=== PATIENT | male | born 1960 | race Caucasian/White ===

== ENCOUNTER 2022-01-16 17:43 | Emergency (ER) | payer SELFPAY ==
--- NOTE | ~2022-01-16 | XR_ITS ---
XR elbow LT min 3V DATE: 01/16/2022 18:17 INDICATION: Fall. Posterior elbow laceration, pain TECHNIQUE: 4 views COMPARISON: None FINDINGS: No radiopaque soft tissue foreign body or subcutaneous emphysema. No recent fracture or dislocation. No joint effusion. No periosteal reaction or bone destruction. IMPRESSION: No fracture or dislocation or joint effusion Reviewed, dictated and finalized at location B. RANCE MANAGER
[2022-01-16 17:45] VITALS: BP 180/119; PULSE 76; RESP 16; TEMP 36.7; O2SAT 100
--- NOTE | 2022-01-16 17:45 | ED.UPPEXIN ---
HPI - Extremity Injury (Upper) General Chief Complaint: Extremity Injury, Upper Stated Complaint: left arm injury Time Seen by Provider: 01/16/22 17:45 Source: patient and RN notes reviewed Mode of arrival: ambulatory Limitations: no limitations Discharge Plan Discharge Follow-up/Referrals: Maggi Barbosa [Primary Care Provider] -
--- NOTE | 2022-01-16 17:52 | ED.FALL ---
HPI - Fall General Chief Complaint: Fall Stated Complaint: left arm injury Time Seen by Provider: 01/16/22 17:45 Source: patient and RN notes reviewed Mode of arrival: ambulatory Limitations: no limitations History of Present Illness HPI Narrative: patient states he was in the garage moving some chairs when he tripped over some other items fell onto his left side the elbow. He said he twisted his torso when he fell and he thinks he pulled some muscles in his ribs. He declined x-ray of his ribs at this time. complaint: fall Onset (ago): minute(s) (45) Fall from: standing Fall witnessed: yes, by family Place fall occurred: home Loss of consciousness: none Symptoms prior to fall: none Context: tripped/slipped Location of injury: chest (left ribs) Location of injury - extremities: Left: elbow Severity: moderate Quality: dull and aching Associated symptoms (after fall): denies Related Data Home Medications Medication Instructions Recorded Confirmed lisinopril 20 mg tablet 20 mg PO DAILY 01/16/22 01/16/22 Allergies Allergy/AdvReac Type Severity Reaction Status Date / Time No Known Allergies Allergy Verified 01/16/22 18:00 Review of Systems Review of Systems: All systems reviewed & are unremarkable except as noted in HPI and below PMFSH Past Medical History Medical History (Updated 01/16/22 @ 18:55 by Octavio Bardales MD) Hypertension Surgical History Surgical History (Updated 01/16/22 @ 17:58 by Octavio Bardales MD) H/O laminectomy L5-S1 Social History Social History (Updated 01/16/22 @ 17:58 by Octavio Bardales MD) Smoking status: Current every day smoker Tobacco type: e-cigarettes/vaping Additional smoking assessment comments: former smoker cigarettes currently vapes nicotine Exam Const: General: healthy appearing, no acute distress and alert Nutritional Appearance: well nourished Orientation/consciousness: patient oriented x3 Limitations: no limitations HENMT: Head: normal to inspection Ears: external ears normal Eyes: Conjunctivae: conjunctivae normal Pupils: Equal, round and reactive pupils present EOM: EOMs intact bilaterally Neck: Neck: normal visual inspection Chest: Chest palpation & inspection: tenderness rib left mid-axillary line involving the 6th rib and involving the 7th rib Resp: Effort & Inspection: normal respiratory effort Auscultation: clear to auscultation bilaterally Cardio: Rate: regular rate Rhythm: regular rhythm GI: GI Palp: Yes Soft to palpation and No Tenderness to palpation present (GI) Auscultation: normal bowel sounds Back/Spine/Pelvis: Cervical Spine: cervical ROM normal Thoracic/Lumbar Spine: thoraco-lumbar ROM normal Skin: General skin exam: normal color Rashes: no rashes Neuro: General: patient oriented x3, moves all extremities, no focal motor deficits and CN's II-XI intact bilaterally Speech: normal speech Gait exam (Neuro): Normal gait present Extrem: General: no clubbing, cyanosis or edema Left upper extremity: elbow/forearm tenderness of the olecranon, swelling of the olecranon and abrasion elbow posterior single Psych: Mental Status: mental status grossly normal Affect: normal affect Attitude: cooperative Course Vital Signs Vital signs: Vital Signs Temperature 36.7 C 01/16/22 17:45 Pulse Rate 76 01/16/22 17:45 Respiratory Rate 16 01/16/22 17:45 Blood Pressure 180/119 H 01/16/22 17:45 Pulse Oximetry 100 01/16/22 17:45 Oxygen Delivery Room Air 01/16/22 17:45 Temperature 36.7 C 01/16/22 17:45 Pulse Rate 75 01/16/22 19:13 Respiratory Rate 16 01/16/22 19:13 Blood Pressure 165/104 H 01/16/22 19:13 Pulse Oximetry 98 01/16/22 19:13 Oxygen Delivery Room Air 01/16/22 19:13 MDM - Fall Imaging Data Radiologist's impression: no fracture of the left elbow Discharge Plan Discharge Clinical Impression: Contusion of elbow, left Qualifiers: Encounter type: initial encounter
--- NOTE | 2022-01-16 18:25 | PC.NURSE ---
SPOKE WITH [facility] WHO REPORTS PT HAS NOT FILLED HIS MEDICATIONS SINCE 07/03/2020, HAD ABT ORDERED IN 10/01 AND NEVER PICKED THOSE UP EITHER. SPOKE WITH PT WHO REPORTS HE STILL HAS SOME OF HIS HTN MEDICATION AT HOME AND TAKES THEM WHEN HE GETS EXICITED.
[2022-01-16 19:13] VITALS: BP 165/104; PULSE 75; RESP 16; O2SAT 98
== END 2022-01-16 19:15 | disposition home or self-care (01) ==
PROVIDERS: Emergency Provider Emergency Medicine
DX: S50.02XA Contusion of left elbow, initial encounter (principal); W19.XXXA Unspecified fall, initial encounter
CPT/HCPCS: 73080; 99283

== ENCOUNTER 2023-08-18 11:23 | Inpatient (IN) | payer MEDICAID, SELFPAY ==
[2023-08-18] VITALS (31 sets, daily range): BP systolic 138–164; BP diastolic 82–105; PULSE 79–104; RESP 7–25; TEMP 36.7–36.8; O2SAT 96–100; BMI 25.0
--- NOTE | ~2023-08-18 | US_ITS ---
Limited ABDOMINAL ULTRASOUND Ordering provider: Anneliese Hung MD History: . pancreatitis . Comparison: None. FINDINGS: LIVER: Normal size. Heterogenous echotexture with fat infiltration. Lobulated outline which may indic ate cirrhosis. Follow-up advised.. No focal hepatic lesions or perihepatic fluid collections are iden tified. Normal flow of the portal vein. GALLBLADDER: Unremarkable. No evidence for stones, sludge, gallbladder wall thickening or pericholecy stic fluid collections. A negative sonographic Reeder's sign was noted. BILIARY DUCTS: No evidence for intra or extrahepatic biliary dilation. Common bile duct measures 2.34 mm in diameter which is within normal limits. PANCREAS: Not well demonstrated. IMPRESSION: Heterogenous echogenicity of the liver which is suggestive of fat infiltration. Lobulated outline als o areas of the possibility of cirrhosis. Clinical correlation and follow-up advised. The pancreas was not well demonstrated. Reviewed, dictated and finalized at location A. IMPRESSION: Heterogenous echogenicity of the liver which is suggestive of fat infiltration. Lobulated outline also areas of the possibility of cirrhosis. Clinical correla tion and follow-up advised. The pancreas was not well demonstrated.
--- NOTE | ~2023-08-18 | CT_ITS ---
CT of the Abdomen and Pelvis: Indication: Abdominal pain Technique: 2.5 mm axial scans were obtained through the abdomen and pelvis following intravenous adm inistration of 100 cc of Omnipaque 350. Dose reduction technique was used on this scan by utilizing a utomated exposure control and iterative reconstruction technique. The dose-length product (DLP) was 7 09.09 mGy-cm. Findings: Scans through the lung bases are unremarkable. The liver, spleen, pancreas, gallbladder, adrenals and kidneys are within normal limits. No evidence of aortic aneurysm. Shotty central mesenteric lymph nodes are present, with minimal haziness. No bowel obstruction or bowel wall thickening. Questionable diarrheal illness with fluid within large bowel. Images through the pelvis were performed. Urinary bladder unremarkable. No pelvic mass seen. No ascit es. Impression: Findings suggestive diarrheal illness, otherwise nonspecific. Suspected mild mesenteric panniculitis. Reviewed, dictated and finalized at [facility]. Impression: Findings suggestive diarrheal illness, otherwise nonspecific. Suspected mild mesenteric panniculitis.
--- NOTE | 2023-08-18 12:43 | ED.NAVMDI ---
HPI - Nausea/Vomiting/Diarrhea General Chief complaint: Nausea/Vomiting/Diarrhea <Caitlin Sanchez PA-C - Last Filed: 08/18/23 12:46> Stated complaint: nausea vomitting <JESS Dukes Last Filed: 08/18/23 12:46> Time Seen by Provider: 08/18/23 12:40 <Caitlin Sanchez PA-C - Last Filed: 08/18/23 12:46> Focused HPI: Patient is a 62 y/o male who presents to the ED via EMS with report of N/V/D. Patient reports he has been sick for the past 3-4 days with persistent nausea, vomiting, diarrhea. He states he is unable to keep down any food or drink. Reports whatever he attempts comes out one way or the other. Reports diffuse abd pain. Denies fevers. Denies rectal bleeding, melena. GENERAL: Appears older than stated age, well-nourished, and in no acute distress. HEAD: Normocephalic, atraumatic. CHEST: Clear to auscultation. ?No respiratory distress. HEART: Regular rate and rhythm.? ABD: No significant tenderness. MSK: Ankle monitor on R ankle. NEURO: ?Alert and oriented x3. Patient screened in triage and initial orders placed.? ?Additional care and disposition to be based upon?diagnostic testing and treatment. <Caitlin Sanchez PA-C - Last Filed: 08/18/23 12:46> Source: patient <Caitlin Sanchez PA-C - Last Filed: 08/18/23 12:46> Mode of arrival: EMS <Caitlin Sanchez PA-C - Last Filed: 08/18/23 12:46> Limitations: no limitations <JESS Dukes Last Filed: 08/18/23 12:46> History of Present Illness HPI Narrative: Agree with HPI. <Shine Snell MD - Last Filed: 08/18/23 18:43> Related Data Home medications: Home Medications Medication Instructions Recorded Confirmed lisinopril 20 mg tablet 20 mg PO DAILY 01/16/22 01/16/22 <JESS Dukes Last Filed: 08/18/23 12:46> Allergies/Adverse reactions: Allergies Allergy/AdvReac Type Severity Reaction Status Date / Time No Known Allergies Allergy Verified 08/18/23 18:42 <Caitlin Sanchez PA-C - Last Filed: 08/18/23 12:46> Review of Systems Review of Systems: All systems reviewed & are unremarkable except as noted in HPI and below <Shine Snell MD - Last Filed: 08/18/23 18:43> Constitutional: Constitutional: Reports no additional constitutional complaints <Shine Snell MD - Last Filed: 08/18/23 18:43> ENT: Reports system reviewed and no additional complaints, except as documented <Shine Snell MD - Last Filed: 08/18/23 18:43> Cardiovascular: Cardiovascular: Reports no additional cardiovascular complaints <Shine Snell MD - Last Filed: 08/18/23 18:43> Respiratory: Respiratory: Reports no additional respiratory complaints <Shine Snell MD - Last Filed: 08/18/23 18:43> Gastrointestinal: Gastrointestinal: Reports abdominal pain, Denies heartburn, Reports diarrhea, Reports nausea and Reports vomiting <Shine Snell MD - Last Filed: 08/18/23 18:43> Neurologic: Reports system reviewed and no additional complaints, except as documented <Shine Snell MD - Last Filed: 08/18/23 18:43> PMFSH Past Medical History Medical History: Medical History (Updated 08/18/23 @ 18:43 by Shine Snell MD) Hypertension <Caitlin Sanchez PA-C - Last Filed: 08/18/23 12:46> Surgical History Surgical History: Surgical History (Updated 01/16/22 @ 17:58 by Octavio BardalesMD) H/O laminectomy L5-S1 <Caitlin Sanchez PA-C - Last Filed: 08/18/23 12:46> Social History Social History: Social History (Updated 01/16/22 @ 17:58 by Octavio BardalesMD) Smoking status: Current every day smoker Tobacco type: e-cigarettes/vaping Additional smoking assessment comments: former smoker cigarettes currently vapes nicotine <Caitlin Sanchez PA-C - Last Filed: 08/18/23 12:46> Exam Narrative: GENERAL: Well-appearing, well-nourished, and in no acute distress. HEAD: Normo
[2023-08-18 12:53] LABS: Basophils Percent Auto 0.3 % (0.2-1.2); Eosinophils Absolute Auto 0.1 K/mm3 (0-0.3); Eosinophils Percent Auto 1.2 % (0-4.4); Hematocrit 49.3 % (42.0-52.0); Hemoglobin 16.4 g/dL (14.0-18.0); Immature Granulocyte Absolute 0.04 K/mm3 (0.00-0.031); Immature Granulocyte Percent A 0.3 % (0-0.5); Lymphocytes Absolute Auto 1.17 K/mm3 (0.9-3.2); Lymphocytes Percent Auto 9.8 % (18.3-44.2); Mean Corpuscular HGB Conc 33.3 g/dl (32-36); Mean Corpuscular Hemoglobin 31.7 pg (26-34); Mean Corpuscular Volume 95.2 fl (80-100); Mean Platelet Volume 10.3 fl (7.4-10.4); Monocytes Absolute Auto 0.7 K/mm3 (0.1-0.6); Monocytes Percent Auto 6.2 % (2.6-8.5); Neutrophils Absolute Auto 9.8 K/mm3 (1.3-6.7); Neutrophils Percent Auto 82.2 % (45.5-73.1); Platelet Count Result 262 k/mm3 (150-375); Red Blood Count 5.18 M/mm3 (4.6-6.20); Red Cell Distribution Width 12.5 % (11.5-14.5); White Blood Count 11.9 K/mm3 (4.5-10.0)
[2023-08-18 13:12] LABS: Lactic Acid Reflex 2.1 mmol/L (0.7-2.0)
[2023-08-18 13:13] LABS: Alanine Aminotransferase 27 U/L (6-50); Albumin Level 4.7 g/dL (3.5-5.1); Alkaline Phosphatase 80 U/L (38-126); Anion Gap 11 mmol/L (4-12); Aspartate Amino Transferase 28 U/L (17-59); Bilirubin,Total 1.1 mg/dL (0.2-1.3); Blood Urea Nitrogen 26 mg/dL (9-20); Calcium 9.4 mg/dL (8.4-10.2); Carbon Dioxide 25 mmol/L (22-30); Chloride 99 mmol/L (98-107); Estimated CRCL calculation 93 ml/min; Estimated Glomerular Filt Rate > 60; Glucose 105 mg/dL (65-110); Lipase 1533 U/L (23-300); Potassium 4.9 mmol/L (3.4-5.0); Sodium 135 mmol/L (137-145)
[2023-08-18] MEDS: SODIUM CHLORIDE 0.9% IV 1,000 ML 999 ML IV CONT (13:21)
[2023-08-18] MEDS: ONDANSETRON INJ 4 MG/2 ML VIAL IV PUSH ×2 (13:22→20:24)
[2023-08-18 14:19] LABS: Appearance Urine Clear (Clear); Bilirubin Urine Negative (Negative); Blood Urine Negative (Negative); Color Urine Yellow (Yellow); Glucose Urine UA Negative (Negative); Ketones Urine Negative (Negative); Leukocyte Esterase Ur Negative LEU/UL (Negative); Nitrate Urine Negative (Negative); Protein Urine Negative (Negative); Specific Grav Ur > 1.045 (1.001-1.035); Urobilinogen Urine 0.2 mg/dL (<2.0); pH Urine 5.5 (5.0-9.0)
[2023-08-18 14:43] LABS: Add Urine Microscopic? NO
[2023-08-18 15:51] LABS: Reflex Lactic Acid Yes or No Add Lactic
[2023-08-18 17:05] LABS: Lactic Acid 1.3 mmol/L (0.7-2.0)
[2023-08-18] MEDS: SODIUM CHLORIDE 0.9% IV 1,000 ML 200 ML IV CONT ×2 (18:39→20:24)
--- NOTE | 2023-08-18 18:47 | ADMGEN ---
This patient, Jatin Ralph, was admitted to 3 [facility] Surg Room 314-02. Report received from ANGELA Farooq. Patient/family oriented to hospital policies and general routines including ID bracelet, bed and alarms, visiting hours, pain management, procedures, bathroom and other care routines, personal items, smoking policy, room service/diet, and visiting hours. Information on how to activate the Rapid Response Team has been discussed. Patient/Family are encouraged to report perceived risks to care and to ask questions if they do not understand what they are told or what they should do.
[2023-08-18] MEDS: MORPHINE SULFATE (*CRX) 4 MG/ML INJ IV PUSH (20:24)
--- NOTE | 2023-08-18 23:43 | PM.IMHP ---
H&P: HPI History of Present Illness Date/Time: 08/18/23 23:43 Chief Complaint: Vomiting and diarrhea Narrative: 62 year old meth user admitting with nausea, vomiting and diarrhea other medical history of HTN lipase is 1533, sodium is 135, wcc is 11.9 CT scan shows - Findings suggestive diarrheal illness, otherwise nonspecific. Suspected mild mesenteric panniculitis. Pt admitted for pancreatitis to medical floor Pt denies alcholol or smoking but uses meth every other day Pt feels very anxious presently in the bed Review of Systems Review of Systems: Anxiety , diarrhea, vomiting, mild abdominal pains All other 12 systems are reviewed and negative apart from pertinent complaints above PMFSH Past Medical History Medical History (Updated 08/18/23 @ 23:51 by Anneliese Hung MD) Hypertension Surgical History Surgical History H/O laminectomy L5-S1 Social History Social History Smoking status: Current every day smoker Tobacco type: cigarettes Additional smoking assessment comments: former smoker cigarettes currently vapes nicotine Alcohol intake: never Substance use: current Substance use type: amphetamines Last use: 08/16/23 Do You Feel Safe in your Home?: Yes Lack of Transportation: YES Lack of Food: Often True Current Housing: I Do Not Have Housing Concerned About Future Housing: YES Difficulty Paying Gas/Electric Bills: No Difficulty Paying for Meds: YES Currently Unemployed: YES Education: Associate Degree Difficulty w/ Childcare or Family Care: No Spiritual care concerns: No Meds Home Medications and Allergies Home Medications Medication Instructions Recorded Confirmed Type lisinopril 20 mg tablet 20 mg PO DAILY 01/16/22 08/18/23 History Allergies Allergy/AdvReac Type Severity Reaction Status Date / Time No Known Allergies Allergy Verified 08/18/23 18:42 Vital Signs Vital Signs - 24 hr 08/18/23 11:26 08/18/23 13:42 08/18/23 13:09 Temperature 36.7 C Pulse Rate 94 83 88 Respiratory Rate 16 16 12 Blood Pressure 138/90 156/95 H Pulse Oximetry 98 99 Oxygen Delivery Room Air 08/18/23 13:15 08/18/23 13:37 08/18/23 13:38 Temperature Pulse Rate 89 87 89 Respiratory Rate 11 L 14 Blood Pressure 156/95 H Pulse Oximetry 99 99 98 Oxygen Delivery 08/18/23 13:45 08/18/23 13:46 08/18/23 14:00 Temperature Pulse Rate 82 80 86 Respiratory Rate 16 17 13 Blood Pressure 142/90 H Pulse Oximetry 97 97 98 Oxygen Delivery 08/18/23 14:01 08/18/23 14:15 08/18/23 14:16 Temperature Pulse Rate 97 94 85 Respiratory Rate 25 H 17 19 Blood Pressure 143/90 H 146/102 H Pulse Oximetry 96 99 98 Oxygen Delivery 08/18/23 14:30 08/18/23 14:31 08/18/23 14:45 Temperature Pulse Rate 85 86 91 Respiratory Rate 20 19 24 H Blood Pressure 164/83 H Pulse Oximetry 97 98 Oxygen Delivery 08/18/23 14:46 08/18/23 15:00 08/18/23 15:15 Temperature Pulse Rate 90 87 93 Respiratory Rate 22 H 16 17 Blood Pressure 159/105 H Pulse Oximetry 98 97 97 Oxygen Delivery 08/18/23 15:30 08/18/23 15:45 08/18/23 16:00 Temperature Pulse Rate 92 91 94 Respiratory Rate 19 19 17 Blood Pressure Pulse Oximetry 99 Oxygen Delivery 08/18/23 16:15 08/18/23 16:30 08/18/23 16:45 Temperature Pulse Rate 104 H 81 80 Respiratory Rate 7 L 11 L 14 Blood Pressure Pulse Oximetry Oxygen Delivery 08/18/23 17:00 08/18/23 17:15 08/18/23 17:30 Temperature Pulse Rate 79 79 100 Respiratory Rate 19 12 15 Blood Pressure Pulse Oximetry Oxygen Delivery 08/18/23 17:45 08/18/23 18:00 08/18/23 20:42 Temperature 36.8 C Pulse Rate 79 84 90 Respiratory Rate 9 L 14 18 Blood Pressure 145/82 H Pulse Oximetry 100 Oxygen Delivery 08/18/23 20:00 Temperat
[2023-08-19] MEDS: MORPHINE SULFATE (*CRX) 4 MG/ML INJ IV PUSH ×3 (00:41→21:04)
[2023-08-19 05:40] VITALS: BP 144/84; PULSE 80; RESP 18; TEMP 36.7; O2SAT 99
[2023-08-19 08:00] VITALS: O2SAT 99
[2023-08-19 08:53] LABS: Hematocrit 43.2 % (42.0-52.0); Hemoglobin 14.1 g/dL (14.0-18.0); Mean Corpuscular HGB Conc 32.6 g/dl (32-36); Mean Corpuscular Hemoglobin 31.8 pg (26-34); Mean Corpuscular Volume 97.3 fl (80-100); Mean Platelet Volume 10.3 fl (7.4-10.4); Platelet Count Result 212 k/mm3 (150-375); Red Blood Count 4.44 M/mm3 (4.6-6.20); Red Cell Distribution Width 12.6 % (11.5-14.5); White Blood Count 6.9 K/mm3 (4.5-10.0)
[2023-08-19 09:09] LABS: Alanine Aminotransferase 20 U/L (6-50); Albumin Level 3.7 g/dL (3.5-5.1); Alkaline Phosphatase 75 U/L (38-126); Anion Gap 7 mmol/L (4-12); Aspartate Amino Transferase 22 U/L (17-59); Bilirubin,Total 0.6 mg/dL (0.2-1.3); Blood Urea Nitrogen 18 mg/dL (9-20); Calcium 8.8 mg/dL (8.4-10.2); Carbon Dioxide 27 mmol/L (22-30); Chloride 104 mmol/L (98-107); Estimated CRCL calculation 69 ml/min; Estimated Glomerular Filt Rate > 60; Glucose 93 mg/dL (65-110); Lipase 153 U/L (23-300); Potassium 4.1 mmol/L (3.4-5.0); Sodium 138 mmol/L (137-145)
[2023-08-19] MEDS: PANTOPRAZOLE SODIUM IV 40 MG VIAL IV PUSH ×2 (09:27→21:04)
[2023-08-19] MEDS: lisinopriL 20 MG TABLET PO (09:27)
[2023-08-19] MEDS: ALPRAZolam (*CRX) 0.25 MG TABLET PO ×3 (09:27→18:30)
[2023-08-19] MEDS: ENOXAPARIN 40 MG/0.4 ML SYRINGE SUB-Q (09:27)
[2023-08-19 13:00] VITALS: BMI 25.0
--- NOTE | 2023-08-19 13:08 | WPDGICN ---
Assessment and Plan Assessment and plan (1) Acute diarrhea: Code(s): R19.7 - Diarrhea, unspecified Status: Acute (2) Nausea and vomiting: Code(s): R11.2 - Nausea with vomiting, unspecified Status: Acute (3) Mesenteric panniculitis: Code(s): K65.4 - Sclerosing mesenteritis Status: Acute (4) Elevated lipase: Code(s): R74.8 - Abnormal levels of other serum enzymes Status: Acute (5) Cirrhosis: Code(s): K74.60 - Unspecified cirrhosis of liver Status: Acute (6) Methamphetamine use: Code(s): F15.10 - Other stimulant abuse, uncomplicated Status: Acute (7) Hypertension: Code(s): I10 - Essential (primary) hypertension Status: Acute (8) Acute pancreatitis: Code(s): K85.90 - Acute pancreatitis without necrosis or infection, unspecified Status: Acute Plan Nausea, Vomiting and Diarrhea/Mid Abdominal Pain/Mesenteric panniculitis: Viral vs. Infectious, CT noted liquid stool throughout the colon consistent with diarrhea illness and suspected mild mesenteric panniculitis which could be consistent with viral or bacterial infection or etiology ischemic. WBC elevated 11. He has had no further diarrhea or vomiting since being hospitalized but has been NPO. -Recommend checking for c diff, stool culture and stool O&P along with viral -Continue IV hydration and supportive Tx -Recommend close f/u to make sure mesenteric panniculitis has resolved with imaging in 6-8 weeks by PCP -Colonoscopy recommended outpatient. -Abstain from methamphetamine use Elevated Lipase/Acute pancreatitis: Lipase elevated on admission of 1533 and Lipase is now normal. CT showed normal appearing pancreas and abd US showed no evidence of gallstones. Lipase could be elevated due to acute vomiting? His abdominal pain is not consistent with pancreatitis. -He received adequate hydration -Supportive Tx recommended -Advance diet as tolerated -recommend him seeing from methamphetamine Abnormal Liver Contour/Hepatic Steatosis/Cirrhosis?: US showed normal liver size with fat infiltration with lobulated outline that may indicate cirrhosis. He denies any hx of ETOH abuse or family hx of chronic liver diseases. LFT normal and platelets normal. No signs of decompensation of liver disease. Could be secondary to chronic drug use, meth? -Recommend liver work up labs to rule out other chronic liver diseases -f/u outpatient for Cirrhosis f/u -Recommend to abstain from methamphetamine GI Consult Note Consult date/time: 08/19/23 1756 Reason for consult: Pancreatitis HPI: Jatin Ralph is a 62 year old male asked to be seen at the request of the hospitalist for pancreatitis. Past medical history of hypertension, chronic methamphetamine abuse, and laminectomy. He presented to the ER yesterday 08/18/2023 for 5 days of nausea, vomiting and diarrhea with increasing weakness. He also states that he had been having constant mid abdominal pain pain that he describes as ?getting kicked in the stomach?. He believes that eating made the abdominal pain somewhat better but immediately if he would eat he would either vomit or have postprandial diarrhea. He denies any black or bloody stools. He denied any recent antibiotic usage, travel or sick contacts. He had a similar episode around 6-8 days prior that lasted 2 days and self resolved. He complains of having hot flashes but never took his temperature. Colonoscopy greater than 10 years ago with no abnormalities. Never has had an EGD. His mother of complications after colonoscopy. No family history of inflammatory bowel disease, GI malignancies. He denies any heavy chronic alcohol abuse, reports 2-3 beers per week. Denies any new recent medications. He has been taking Advil 2-3 tabs daily for chronic pain and taking 5 children's aspirin due to ?chest pain? and ?high blood pressure?. He does not follow with PCP. He uses methamphetamine every
[2023-08-19] MEDS: SODIUM CHLORIDE 0.9% IV 1,000 ML 200 ML IV CONT ×2 (13:37→18:30)
--- NOTE | 2023-08-19 13:37 | P.PNIM_ITS ---
Progress Note: A&P Assessment and Plan (1) Acute pancreatitis: Code(s): K85.90 - Acute pancreatitis without necrosis or infection, unspecified Status: Acute (2) Methamphetamine use: Code(s): F15.10 - Other stimulant abuse, uncomplicated Status: Acute (3) Hypertension: Code(s): I10 - Essential (primary) hypertension Status: Acute Plan Acute pancreatitis * elevated lipase POA trend * CT Suspected mild mesenteric panniculitis. * GI consulted * IV fluids * pain control * Advanced to clear liquid advance as tolerated * PPI * Methamphetamine cessation recommended Nausea, Vomiting and Diarrhea/Mid Abdominal Pain/Mesenteric panniculitis: * GI consulted * stool studies pending * Recommend close f/u to make sure mesenteric panniculitis has resolved with imaging in 6-8 weeks by PCP * Colonoscopy recommended outpatient. * Abstain from methamphetamine use Hepatic Steatosis/Cirrhosis? * KUB with possible cirrhosis * GI following * will need F/U O/P * hepatitis panel pending HX HTN: Resumed lisinopril Code status: Full code per patient DVT prophylaxis: Lovenox Stress ulcer prophylaxis: Protonix 40 daily PT/OT notes: Ambulatory Disposition: Patient was admitted for acute pancreatitis with nausea diarrhea patient being treated with aggressive IV hydration pain control will advance diet as tolerated GI consulted. Of note patient does have ankle monitor to RT ankle CC assisting with discharge planning and resources. Time Spent With Patient Time with patient: 15 - 25 minutes Subjective Date/time seen: 08/19/23 13:37 Interval history: Admission: Medical Record 62 year old meth user admitting with nausea, vomiting and diarrhea other medical history of HTN lipase is 1533, sodium is 135, wcc is 11.9 CT scan shows - Findings suggestive diarrheal illness, otherwise nonspecific. Suspected mild mesenteric panniculitis. 08/19/2023: Patient admitted with acute pancreatitis, lipase trending down and GI consulted. Patient reported pain has improved transitioned to clear liquid and will advance as tolerated. WBC 11.9 POA normal at 6.9, GI ordered stool labs and hepatitis panel recommend outpatient colonoscopy cirrhosis follow-up. Review of Systems Review of Systems: Anxiety , diarrhea, vomiting, mild abdominal pains All other 12 systems are reviewed and negative apart from pertinent complaints above All systems reviewed & are unremarkable except as noted in HPI and below Exam Narrative: Physical Exam: * GENERAL: Alert and oriented x 3. No acute distress. * EYES: EOMI. No scleral icterus. PERRLA. * HEENT: Moist mucous membranes. * LUNGS: Clear to auscultation bilaterally. No accessory muscle use. * CARDIOVASCULAR: Regular rate and rhythm. No murmur. No JVD. S1-S2 * ABDOMEN: Soft, mild tenderness and non-distended. No palpable masses. * EXTREMITIES: No edema. Non-tender (Of note patient does have an ankle monitor on RT ankle. * SKIN: No rashes or lesions. Skin warm, dry. * NEUROLOGIC: No focal neurological deficits. CN II-XII grossly intact * PSYCHIATRIC: Appropriate mood and affect. Good judgement and insight. No visual or auditory hallucinations. No suicidal or homicidal ideation. Objective Data Vital Signs Vital Signs: Vital Signs - 24 hr 08/18/23 13:42 08/18/23
--- NOTE | 2023-08-19 13:37 | PM.IMPN ---
Progress Note: A&P Assessment and Plan (1) Acute pancreatitis: Code(s): K85.90 - Acute pancreatitis without necrosis or infection, unspecified Status: Acute (2) Methamphetamine use: Code(s): F15.10 - Other stimulant abuse, uncomplicated Status: Acute (3) Hypertension: Code(s): I10 - Essential (primary) hypertension Status: Acute Plan Acute pancreatitis elevated lipase POA trend CT Suspected mild mesenteric panniculitis. GI consulted IV fluids pain control Advanced to clear liquid advance as tolerated PPI Methamphetamine cessation recommended Nausea, Vomiting and Diarrhea/Mid Abdominal Pain/Mesenteric panniculitis: GI consulted stool studies pending Recommend close f/u to make sure mesenteric panniculitis has resolved with imaging in 6-8 weeks by PCP Colonoscopy recommended outpatient. Abstain from methamphetamine use Hepatic Steatosis/Cirrhosis? KUB with possible cirrhosis GI following will need F/U O/P hepatitis panel pending HX HTN: Resumed lisinopril Code status: Full code per patient DVT prophylaxis: Lovenox Stress ulcer prophylaxis: Protonix 40 daily PT/OT notes: Ambulatory Disposition: Patient was admitted for acute pancreatitis with nausea diarrhea patient being treated with aggressive IV hydration pain control will advance diet as tolerated GI consulted. Of note patient does have ankle monitor to RT ankle CC assisting with discharge planning and resources. Time Spent With Patient Time with patient: 15 - 25 minutes Subjective Date/time seen: 08/19/23 13:37 Interval history: Admission: Medical Record 62 year old meth user admitting with nausea, vomiting and diarrhea other medical history of HTN lipase is 1533, sodium is 135, wcc is 11.9 CT scan shows - Findings suggestive diarrheal illness, otherwise nonspecific. Suspected mild mesenteric panniculitis. 08/19/2023: Patient admitted with acute pancreatitis, lipase trending down and GI consulted. Patient reported pain has improved transitioned to clear liquid and will advance as tolerated. WBC 11.9 POA normal at 6.9, GI ordered stool labs and hepatitis panel recommend outpatient colonoscopy cirrhosis follow-up. Review of Systems Review of Systems: Anxiety , diarrhea, vomiting, mild abdominal pains All other 12 systems are reviewed and negative apart from pertinent complaints above All systems reviewed & are unremarkable except as noted in HPI and below Exam Narrative: Physical Exam: GENERAL: Alert and oriented x 3. No acute distress. EYES: EOMI. No scleral icterus. PERRLA. HEENT: Moist mucous membranes. LUNGS: Clear to auscultation bilaterally. No accessory muscle use. CARDIOVASCULAR: Regular rate and rhythm. No murmur. No JVD. S1-S2 ABDOMEN: Soft, mild tenderness and non-distended. No palpable masses. EXTREMITIES: No edema. Non-tender (Of note patient does have an ankle monitor on RT ankle. SKIN: No rashes or lesions. Skin warm, dry. NEUROLOGIC: No focal neurological deficits. CN II-XII grossly intact PSYCHIATRIC: Appropriate mood and affect. Good judgement and insight. No visual or auditory hallucinations. No suicidal or homicidal ideation. Objective Data Vital Signs Vital Signs: Vital Signs - 24 hr 08/18/23 13:42 08/18/23 13:38 08/18/23 13:45 Temperature Pulse Rate 83 89 82 Respiratory Rate 16 14 16 Blood Pressure 156/95 H 156/95 H Pulse Oximetry 99 98 97 Oxygen Delivery 08/18/23 13:46 08/18/23 14:00 08/18/23 14:01 Temperature Pulse Rate 80 86 97 Respiratory Rate 17 13 25 H Blood Pressure 142/90 H 143/90 H Pulse Oximetry 97 98 96 Oxygen Delivery 08/18/23 14:15 08/18/23 14:16 08/18/23 14:30 Temperature Pulse Rate 94 85 85 Respiratory Rate 17 19 20 Blood Pressure 146/102 H Pulse Oximetry 99 98 97 Oxygen Delivery 08/18/23 14:31 08/18/23 14:45 08/18/23 14:46 [place]
[2023-08-19 13:58] LABS: Iron 74 ug/dL (49-181)
[2023-08-19 14:00] VITALS: BP 110/32; PULSE 77; RESP 20; TEMP 36.7; O2SAT 98
[2023-08-19 14:07] LABS: Percent Iron Saturation 26 % (20-50)
[2023-08-19 14:17] LABS: Hepatitis B Surface Antigen Negative (Negative)
[2023-08-19 14:23] LABS: HAV RESULT Negative (Negative); Hepatitis B Core IgM Result Negative (Negative)
[2023-08-19 14:35] LABS: Hepatitis C Virus Antibody Negative (Negative)
[2023-08-19 15:11] LABS: Prothrombin Time 13.9 Seconds (11.1-14.7)
[2023-08-19 22:00] VITALS: BP 147/80; PULSE 83; RESP 18; TEMP 36.6; O2SAT 98
[2023-08-20] MEDS: LORazepam INJ (*CRX) 2 MG/ML VIAL 0.5 MG IV PUSH (00:58)
[2023-08-20] MEDS: SODIUM CHLORIDE 0.9% IV 1,000 ML 200 ML IV CONT ×3 (00:58→05:33)
[2023-08-20] MEDS: MORPHINE SULFATE (*CRX) 4 MG/ML INJ IV PUSH (02:58)
[2023-08-20 05:45] VITALS: BP 131/98; PULSE 74; RESP 18; TEMP 36.6; O2SAT 94
[2023-08-20 07:05] LABS: Alanine Aminotransferase 18 U/L (6-50); Albumin Level 3.2 g/dL (3.5-5.1); Alkaline Phosphatase 62 U/L (38-126); Anion Gap 7 mmol/L (4-12); Aspartate Amino Transferase 17 U/L (17-59); Bilirubin,Total 0.2 mg/dL (0.2-1.3); Blood Urea Nitrogen 15 mg/dL (9-20); Calcium 8.4 mg/dL (8.4-10.2); Carbon Dioxide 23 mmol/L (22-30); Chloride 108 mmol/L (98-107); Estimated CRCL calculation 83 ml/min; Estimated Glomerular Filt Rate > 60; Glucose 96 mg/dL (65-110); Lipase 96 U/L (23-300); Sodium 138 mmol/L (137-145)
[2023-08-20 07:16] LABS: Hematocrit 41.1 % (42.0-52.0); Hemoglobin 13.1 g/dL (14.0-18.0); Mean Corpuscular HGB Conc 31.9 g/dl (32-36); Mean Corpuscular Hemoglobin 31.3 pg (26-34); Mean Corpuscular Volume 98.1 fl (80-100); Mean Platelet Volume 10.9 fl (7.4-10.4); Platelet Count Result 214 k/mm3 (150-375); Red Blood Count 4.19 M/mm3 (4.6-6.20); Red Cell Distribution Width 12.5 % (11.5-14.5); White Blood Count 7.7 K/mm3 (4.5-10.0)
[2023-08-20 08:18] VITALS: O2SAT 98
[2023-08-20] MEDS: PANTOPRAZOLE SODIUM IV 40 MG VIAL IV PUSH (08:31)
[2023-08-20] MEDS: ALPRAZolam (*CRX) 0.25 MG TABLET PO (08:31)
[2023-08-20] MEDS: lisinopriL 20 MG TABLET PO (08:32)
[2023-08-20] MEDS: ENOXAPARIN 40 MG/0.4 ML SYRINGE SUB-Q (08:32)
--- NOTE | 2023-08-20 10:11 | PM.IMPN ---
Progress Note: A&P Assessment and Plan (1) Acute pancreatitis: Code(s): K85.90 - Acute pancreatitis without necrosis or infection, unspecified Status: Acute (2) Methamphetamine use: Code(s): F15.10 - Other stimulant abuse, uncomplicated Status: Acute (3) Hypertension: Code(s): I10 - Essential (primary) hypertension Status: Acute Plan Acute pancreatitis elevated lipase POA trend CT Suspected mild mesenteric panniculitis. GI consulted IV fluids pain control Advanced to clear liquid advance as tolerated PPI Methamphetamine cessation recommended Nausea, Vomiting and Diarrhea/Mid Abdominal Pain/Mesenteric panniculitis: GI consulted stool studies pending Recommend close f/u to make sure mesenteric panniculitis has resolved with imaging in 6-8 weeks by PCP Colonoscopy recommended outpatient. Abstain from methamphetamine use Hepatic Steatosis/Cirrhosis? KUB with possible cirrhosis GI following will need F/U O/P hepatitis panel pending HX HTN: Resumed lisinopril Code status: Full code per patient DVT prophylaxis: Lovenox Stress ulcer prophylaxis: Protonix 40 daily PT/OT notes: Ambulatory Disposition: Patient was admitted for acute pancreatitis with nausea diarrhea patient being treated with aggressive IV hydration pain control will advance diet as tolerated GI consulted. Of note patient does have ankle monitor to RT ankle CC assisting with discharge planning and resources. Subjective Date/time seen: 08/20/23 10:11 Interval history: 62 year old with PMH of htn and methamphetamine abuse presents with nausea, vomiting and diarrhea. 08/19: Review of Systems Review of Systems: All systems reviewed & are unremarkable except as noted in HPI and below Exam Narrative: General: well appearing, appears stated age. HEENT: normocephalic, atraumatic. Mucous membranes moist. EOMI, PERRLA, bilateral sclera anicteric, no conjunctival injection. Neck supple without JVD, lymphadenopathy, or bruit. Respiratory: clear to ascultation bilaterally. No rales/rhonic/wheezes. Cardiovascular: Regular rate and rhythm, normal S1-S2 upon ascultation. No murmurs, rubs, or clicks. PMI is nondisplaced, capillary refill less than 3 second. Abdomen: Soft, round, no pulsatile masses, nondistended and nontender. No rebound, no guarding. No CVA tenderness, no hepatosplenomegaly. Bowel sounds present to all four quadrants. No high pitch or tinkling sounds, resonant to percussion. Extremities: No cyanosis, clubbing, or edema present. Pulses are palpable 2/2. Active ROM to all four extremities. Neuro: Alert and orientated x 4. PERRLA. Cranial nerves 2-12 intact without focal deficit. Skin: Warm, dry, and intact, without rash, erythema, or lesion. Lines: Incisions: Psych: pleasant, cooperative, normal speech, normal affect, no hallucinations, no dysarthia Objective Data Vital Signs Vital Signs: Vital Signs - 24 hr 08/19/23 14:00 08/19/23 22:00 08/20/23 05:45 Temperature 98.0 F 97.9 F 97.9 F Pulse Rate 77 83 74 Respiratory Rate 20 18 18 Blood Pressure 110/32 L 147/80 H 131/98 H Pulse Oximetry 98 98 94 Oxygen Delivery Fraction of Inspired Oxygen 08/20/23 08:18 08/20/23 08:00 Temperature Pulse Rate Respiratory Rate Blood Pressure Pulse Oximetry 98 Oxygen Delivery Room Air Room Air Fraction of Inspired Oxygen 21 21 Intake/Output Intake/Output: Intake & Output 08/17/23 08/18/23 08/19/23 08/20/23 23:59 23:59 23:59 23:59 Intake Total 1350 2976.7 1036.6 Output Total 1150 2600 Balance 1350 1826.7 -1563.4 Meds/Results Medications: Active Medications Generic Name Dose Route Start Last Admin Trade Name Freq PRN Reason Stop Dose Admin Alprazolam 0.25 mg 08/19/23 00:02 08/20/23 08:31 Alprazolam (*Crx) 0.25 Mg Tablet PO 0.25 mg TID PRN Administration AGITATION Clonidine HCl 1 patch
[2023-08-20 14:00] VITALS: BP 162/92; PULSE 74; RESP 18; TEMP 36; O2SAT 100
[2023-08-20 15:49] LABS: Ceruloplasmin 20 mg/dL (14-30)
--- NOTE | 2023-08-20 16:57 | WPDGIPROGNO ---
Progress Note: A&P Assessment and Plan (1) Nausea and vomiting: Code(s): R11.2 - Nausea with vomiting, unspecified Status: Acute Assessment and Plan: resolved, eating now he can go home (2) Acute diarrhea: Code(s): R19.7 - Diarrhea, unspecified Status: Acute (3) Methamphetamine use: Code(s): F15.10 - Other stimulant abuse, uncomplicated Status: Acute Assessment and Plan: needs to discontinue (4) Elevated lipase: Code(s): R74.8 - Abnormal levels of other serum enzymes Status: Acute Assessment and Plan: no obvious pancreatitis though (5) Abnormal liver scan: Code(s): R93.2 - Abnormal findings on diagnostic imaging of liver and biliary tract Status: Acute Assessment and Plan: fatty liver, ? cirrhosis but normal liver enzymes and platelets he can follow-up in office Subjective Date/time seen: 08/20/23 16:57 Interval history: doing better, no abdominal discomfort and eating he is going home Review of Systems Review of Systems: All systems reviewed & are unremarkable except as noted in HPI and below Exam Const: General: comfortable and no acute distress HENMT: Face/Nose/Sinus: Normal nares present Eyes: General: appearance normal, both eyes and all related structures Neck: Neck: no JVD Resp: Auscultation: clear to auscultation bilaterally Cardio: Rate: regular rate Rhythm: regular rhythm GI: Inspection: non-distended GI Palp: Yes Soft to palpation and No Tenderness to palpation present (GI) Auscultation: normal bowel sounds Skin: General skin exam: normal color Neuro: Speech: normal speech Motor exam (neuro): 5/5 motor strength present throughout Extrem: General: normal to inspection Psych: Mental Status: mental status grossly normal Objective Data Vital Signs Vital Signs: Vital Signs - 24 hr 08/19/23 22:00 08/20/23 05:45 08/20/23 08:18 Temperature 97.9 F 97.9 F Pulse Rate 83 74 Respiratory Rate 18 18 Blood Pressure 147/80 H 131/98 H Pulse Oximetry 98 94 98 Oxygen Delivery Room Air Fraction of Inspired Oxygen 21 08/20/23 08:00 08/20/23 14:00 Temperature 96.8 F L Pulse Rate 74 Respiratory Rate 18 Blood Pressure 162/92 H Pulse Oximetry 100 Oxygen Delivery Room Air Fraction of Inspired Oxygen 21 Intake/Output Intake/Output: Intake & Output 08/17/23 08/18/23 08/19/23 08/20/23 23:59 23:59 23:59 23:59 Intake Total 1350 2976.7 2036.6 Output Total 1150 3600 Balance 1350 1826.7 -1563.4 Meds/Results Medications: Active Medications Generic Name Dose Route Start Last Admin Trade Name Freq PRN Reason Stop Dose Admin Alprazolam 0.25 mg 08/19/23 00:02 08/20/23 08:31 Alprazolam (*Crx) 0.25 Mg Tablet PO 0.25 mg TID PRN Administration AGITATION Clonidine HCl 1 patch 08/19/23 00:02 Clonidine 0.1 Mg/24 Hr Patch TRANSDERM WEEKLY PRN Agitation Enoxaparin Sodium 40 mg 08/19/23 09:00 08/20/23 08:32 Enoxaparin 40 Mg/0.4 Ml Syringe SUB-Q 40 mg DAILY JOEL Administration Sodium Chloride 1,000 mls @ 200 mls/hr 08/18/23 17:40 08/20/23 14:14 Normal Saline Iv IV CONT Infused .Q5H JOEL Infusion Lisinopril 20 mg 08/19/23 09:00 08/20/23 08:32 Lisinopril 20 Mg Tablet PO 20 mg DAILY JOEL Administration Lorazepam 0.5 mg 08/19/23 00:00 08/20/23 00:58 Lorazepam Inj (*Crx) 2 Mg/Ml Vial IV PUSH 0.5 mg Q6H PRN Administration Anxiety Morphine Sulfate 4 mg 08/18/23 17:40 08/20/23 02:58 Morphine Sulfate (*Crx) 4 Mg/Ml Inj IV PUSH 4 mg Q2H PRN Administration Pain Rated 7-10 Ondansetron HCl 4 mg 08/18/23 17:40 08/18/23 20:24 Ondansetron Inj 4 Mg/2 Ml Vial IV PUSH 4 mg Q4H PRN Administration Nausea Pantoprazole Sodium 40 mg 08/19/23 09:00 08/20/23 08:31 Pantoprazole Sodium Iv 40 Mg Vial IV PUSH 40 mg Q12HR JOEL Administration Radiology Results: ITS Impressi
--- NOTE | 2023-08-21 13:21 | PM.DS ---
DS: Admitting Diagnosis Discharge Date 08/20/23 Admitting Diagnosis abdominal pain DS: Discharge Diagnosis Discharge Diagnosis (1) Acute pancreatitis: Code(s): K85.90 - Acute pancreatitis without necrosis or infection, unspecified Status: Acute (2) Methamphetamine use: Code(s): F15.10 - Other stimulant abuse, uncomplicated Status: Acute (3) Hypertension: Code(s): I10 - Essential (primary) hypertension Status: Acute Plan Acute pancreatitis elevated lipase POA trend CT Suspected mild mesenteric panniculitis. GI consulted IV fluids pain control Advanced to clear liquid advance as tolerated PPI Methamphetamine cessation recommended Nausea, Vomiting and Diarrhea/Mid Abdominal Pain/Mesenteric panniculitis: GI consulted stool studies pending Recommend close f/u to make sure mesenteric panniculitis has resolved with imaging in 6-8 weeks by PCP Colonoscopy recommended outpatient. Abstain from methamphetamine use Hepatic Steatosis/Cirrhosis? KUB with possible cirrhosis GI following will need F/U O/P hepatitis panel pending HX HTN: Resumed lisinopril Code status: Full code per patient DVT prophylaxis: Lovenox Stress ulcer prophylaxis: Protonix 40 daily PT/OT notes: Ambulatory Disposition: Patient was admitted for acute pancreatitis with nausea diarrhea patient being treated with aggressive IV hydration pain control will advance diet as tolerated GI consulted. Of note patient does have ankle monitor to RT ankle CC assisting with discharge planning and resources. DS: Summary Hospital Course Reason for hospitalization: Pancreatitis Hospital Course: 62 year old with PMH of htn and methamphetamine abuse presents with nausea, vomiting and diarrhea. Patient was diagnosed with pancreatitis and manage conservatively with IV fluids, pain medication, and GI consult. CT showed normal appearing pancreas an abdominal ultrasound without evidence of gallstones. He was discharged home in stable condition with follow-up with his PCP for repeat CT imaging to watch mesenteric panniculitis resolution. He was counseled on stopping methamphetamine use and recommended stopping any alcohol intake. He will also follow up with GI as an outpatient to complete cirrhosis follow-up. Time Spent with Patient Time attestation: Total time spent providing and/or coordinating discharge services: 70 Exam Narrative: General: well appearing, appears stated age. HEENT: normocephalic, atraumatic. Mucous membranes moist. EOMI, PERRLA, bilateral sclera anicteric, no conjunctival injection. Neck supple without JVD, lymphadenopathy, or bruit. Respiratory: clear to ascultation bilaterally. No rales/rhonic/wheezes. Cardiovascular: Regular rate and rhythm, normal S1-S2 upon ascultation. No murmurs, rubs, or clicks. PMI is nondisplaced, capillary refill less than 3 second. Abdomen: Soft, round, no pulsatile masses, nondistended and nontender. No rebound, no guarding. No CVA tenderness, no hepatosplenomegaly. Bowel sounds present to all four quadrants. No high pitch or tinkling sounds, resonant to percussion. Extremities: No cyanosis, clubbing, or edema present. Pulses are palpable 2/2. Active ROM to all four extremities. Neuro: Alert and orientated x 4. PERRLA. Cranial nerves 2-12 intact without focal deficit. Skin: Warm, dry, and intact, without rash, erythema, or lesion. Lines: Incisions: Psych: pleasant, cooperative, normal speech, normal affect, no hallucinations, no dysarthia DS: Data Data Completed and Pending Labs on day of discharge: Labs from last 24 hours 08/19/23 14:37 Ceruloplasmin 20 BEAU Screen Negative Discharge Plan Discharge Attending physician on discharge: Bandar Garcia Consulting providers: Cole Johns; Tommy Sylvester; Deepa Hendrix; Violeta Rao; Conrad Lombardi; Caitlin Sanchez; Mando
[2023-08-21 13:39] LABS: Alpha Fetoprotein Tumor Marker 1.2 ng/mL (<6.1)
[2023-08-26 22:18] LABS: Actin Antibody (IgG) <20 U (<20)
[2023-08-28 08:48] LABS: Mitochondrial (M2) Ab (IgG) 21.9 U
[2023-08-28 13:09] LABS: LKM 1 Antibody <=20.0 U (<=20.0)
== END 2023-08-20 17:00 | disposition home or self-care (01) | DRG 282 ==
LOC: ANHED 13:46 → ANH3MEDSUR 18:24
PROVIDERS: Nurse Practitioner; Nurse Practitioner Family; Physician Assistant; Admitting Provider Family Medicine; Emergency Provider Emergency Medicine; Visit Provider Nurse Practitioner Acute Care
DX: K85.90 Acute pancreatitis without necrosis or infection, unspecified (principal); K65.4 Sclerosing mesenteritis; I10 Essential (primary) hypertension; K74.60 Unspecified cirrhosis of liver; K76.0 Fatty (change of) liver, not elsewhere classified; F15.10 Other stimulant abuse, uncomplicated; F17.210 Nicotine dependence, cigarettes, uncomplicated
CPT/HCPCS: 36415; 74177; 76705; 80053; 80074; 81003; 82105; 82390; 82728; 83520; 83540; 83550; 83605; 83690; 85025; 85027; 85610; 86038; 86039; 86364; 86376; 96361; 96374; 96375; 96376; 99285; A9270; G0378; J1650; J2060; J2270; J2405; J2470; J7030; Q9967

== ENCOUNTER 2023-12-29 00:48 | Emergency (ER) | payer BC, SELFPAY ==
[2023-12-29] VITALS (11 sets, daily range): BP systolic 148–171; BP diastolic 87–115; PULSE 74–93; RESP 10–21; TEMP 36.3; O2SAT 95–100
--- NOTE | ~2023-12-29 | CT_ITS ---
CT of the Abdomen and Pelvis: Indication: Abdominal pain Technique: 2.5 mm axial scans were obtained through the abdomen and pelvis following intravenous adm inistration of 100 cc of Omnipaque 350. Dose reduction technique was used on this scan by utilizing a utomated exposure control and iterative reconstruction technique. The dose-length product (DLP) was 7 73.64 mGy-cm. COMPARISON: 08/18/2023 Findings: Scans through the lung bases are unremarkable. The liver, spleen, pancreas, gallbladder, adrenals and kidneys are within normal limits. No evidence of aortic aneurysm. Small shotty mesenteric lymph nodes are present, similar to prior exam. No bowel obstruction or bowel wall thickening. There is no evidence to suggest acute appendicitis. Sm all fat-containing umbilical hernia. Images through the pelvis were performed. Urinary bladder unremarkable. Prostate gland mildly enlarge d. Small left fat-containing inguinal hernia present. No ascites. Impression: Small fat-containing left inguinal hernia. Small fat-containing umbilical hernia. Small shotty mesenteric lymph nodes are similar to prior exam. Consider mild mesenteric panniculitis. Reviewed, dictated and finalized at location . GENCY ROOM PHYSICIAN Impression: Small fat-containing left inguinal hernia. Small fat-containing umbilical hernia. Small shotty mesenteric lymph nodes are similar to prior exam. Consider mild me senteric panniculitis.
[2023-12-29 01:17] LABS: Basophils Percent Auto 0.2 % (0.2-1.2); Eosinophils Absolute Auto 0.2 K/mm3 (0-0.3); Eosinophils Percent Auto 1.9 % (0-4.4); Hematocrit 41.8 % (42.0-52.0); Hemoglobin 13.9 g/dL (14.0-18.0); Immature Granulocyte Absolute 0.02 K/mm3 (0.00-0.031); Immature Granulocyte Percent A 0.2 % (0-0.5); Lymphocytes Absolute Auto 1.26 K/mm3 (0.9-3.2); Lymphocytes Percent Auto 15.6 % (18.3-44.2); Mean Corpuscular HGB Conc 33.3 g/dl (32-36); Mean Corpuscular Hemoglobin 32.2 pg (26-34); Mean Corpuscular Volume 96.8 fl (80-100); Mean Platelet Volume 10.8 fl (7.4-10.4); Monocytes Absolute Auto 0.8 K/mm3 (0.1-0.6); Monocytes Percent Auto 10.1 % (2.6-8.5); Neutrophils Absolute Auto 5.8 K/mm3 (1.3-6.7); Platelet Count Result 225 k/mm3 (150-375); Red Blood Count 4.32 M/mm3 (4.6-6.20); Red Cell Distribution Width 13.2 % (11.5-14.5); White Blood Count 8.1 K/mm3 (4.5-10.0)
[2023-12-29 01:25] LABS: Alanine Aminotransferase 18 U/L (6-50); Albumin Level 4.1 g/dL (3.5-5.1); Alkaline Phosphatase 98 U/L (38-126); Anion Gap 9 mmol/L (4-12); Aspartate Amino Transferase 24 U/L (17-59); Bilirubin,Total 0.6 mg/dL (0.2-1.3); Blood Urea Nitrogen 27 mg/dL (9-20); Calcium 9.1 mg/dL (8.4-10.2); Carbon Dioxide 26 mmol/L (22-30); Chloride 99 mmol/L (98-107); Estimated CRCL calculation 74 ml/min; Estimated Glomerular Filt Rate > 60; Glucose 105 mg/dL (65-110); Lipase 87 U/L (23-300); Potassium 4.3 mmol/L (3.4-5.0); Sodium 134 mmol/L (137-145)
[2023-12-29] MEDS: ONDANSETRON INJ 4 MG/2 ML VIAL IV PUSH (01:44)
[2023-12-29] MEDS: SODIUM CHLORIDE 0.9% IV 1,000 ML 999 ML IV CONT (01:44)
--- NOTE | 2023-12-29 01:49 | ED.GENADULT ---
HPI - General Adult General Chief complaint: Nausea/Vomiting/Diarrhea Stated complaint: n/v, feeling terrible Time Seen by Provider: 12/29/23 00:52 History of Present Illness HPI narrative: Patient is a 61-year-old gentleman who presents emergency department with chief complaint of abdominal pain. Patient reports the last 4 days been having nausea and vomiting reports he has had some constipation as well set fairly hard stool. The patient does report that he has had a bowel movement in the last 24 hours patient denies fever Related Data Home Medications Medication Instructions Recorded Confirmed lisinopril 20 mg tablet 20 mg PO DAILY 01/16/22 08/18/23 Allergies Allergy/AdvReac Type Severity Reaction Status Date / Time No Known Allergies Allergy Verified 12/29/23 00:54 Review of Systems Review of Systems: A 10 system review of systems was completed on the patient and is negative except for what is stated in the HPI. Nursing and ancillary documentation was reviewed. [facility] Past Medical History Medical History Abnormal liver scan Hypertension Surgical History Surgical History H/O laminectomy L5-S1 Social History Social History Smoking status: Current every day smoker Tobacco type: cigarettes Additional smoking assessment comments: former smoker cigarettes currently vapes nicotine Alcohol intake: never Substance use: current Substance use type: amphetamines Last use: 08/16/23 Do You Feel Safe in your Home?: Yes Lack of Transportation: YES Lack of Food: Often True Current Housing: I Do Not Have Housing Concerned About Future Housing: YES Difficulty Paying Gas/Electric Bills: No Difficulty Paying for Meds: YES Currently Unemployed: YES Education: Associate Degree Difficulty w/ Childcare or Family Care: No Spiritual care concerns: No Exam Narrative: GENERAL: Well-appearing, well-nourished, and in no acute distress. HEAD: Normocephalic, atraumatic. EYES: PERRLA and EOMI. ENT: Nares clear, no rhinorrhea or epistaxis. Mucous membranes moist. NECK: Supple. CHEST: Clear to auscultation. No respiratory distress. HEART: Regular rate and rhythm. No murmur heard. Normal peripheral pulses. ABDOMEN: Soft, diffuse mild tenderness, nondistended, normal active bowel sounds. EXTREMITIES: Normal range of motion. No edema. SKIN: Warm, dry, no rash. NEURO: No focal deficits. Alert and oriented x3. PSYCH: Normal mood and affect. Course Vital Signs Vital signs: Vital Signs Temperature 36.3 C L 12/29/23 00:52 Pulse Rate 93 12/29/23 00:52 Respiratory Rate 16 12/29/23 00:52 Blood Pressure 162/115 H 12/29/23 00:52 Pulse Oximetry 100 12/29/23 00:52 Oxygen Delivery Room Air 12/29/23 00:52 Temperature 36.3 C L 12/29/23 00:52 Pulse Rate 79 12/29/23 04:00 Respiratory Rate 17 12/29/23 04:00 Blood Pressure 160/100 H 12/29/23 02:01 Pulse Oximetry 95 12/29/23 04:00 Oxygen Delivery Room Air 12/29/23 00:52 Medical Decision Making MDM Narrative Medical decision making narrative: Differential diagnosis includes bowel obstruction, gastroenteritis, intra-abdominal infection, diverticulitis, colitis Laboratory studies were obtained on the patient showed a CBC of white count 8.2 hemoglobin 13.9 electrolytes show sodium 134 BUN was 27 rest of the electrolytes and liver enzymes and lipase were negative urinalysis showed no evidence UTI CT scan of the abdomen pelvis showed no evidence of small-bowel obstruction or acute findings Patient will be discharged home with a prescription for Zofran and Protonix patient was instructed to do clear liquids for the next 24-48 hours and should follow up with his primary care provider Vital Signs Vital Signs: Vital Signs Temperature 36.3 C L 12/29/23 00:52 Pulse Rate 93 12/29/23 00:52 Respiratory Rate 16 12/29/23 00:52 Blood Pressure 162/115 H 12/29/23 00:52 Pulse Oximetry 100 12/29/23 00:52 Oxygen Delivery Room Air 12/29/23 00:52 Temperature 36.3 C L 12/29/23 00:52 Pulse Rate 79 12/29/23 04:00 Respiratory Rate 17 12/29/23 04:00 Blood Pressure 160/100 H 12/29/23 02:01 Pulse Oximetry 95 12/29/23 04:00 Oxygen Delivery Room Air 12/29/23 00:52 Lab Data 12/29/23 01:06 12/29/23 01:06 Labs: Lab Results 12/29/23 12/29/23 Range/Units 01:06 04:47 WBC 8.1 (4.5-10.0) K/mm3 RBC 4.32 L (4.6-6.20) M/mm3 Hgb 13.9 L (14.0-18.0) g/dL Hct 41.8 L (42.0-52.0) % MCV 96.8 (80-100) fl MCH 32.2 (26-34) pg MCHC 33.3 (32-36) g/dl RDW 13.2 (11.5-14.5) % Plt Count 225 (150-375) k/mm3 MPV 10.8 H (7.4-10.4) fl Immature Gran % (Auto) 0.2 (0-0.5) % Neut % (Auto) 72.0 (45.5-73.1) % Lymph % (Auto) 15.6 L (18.3-44.2) % Rock % (Auto) 10.1 H (2.6-8.5) % Eos % (Auto) 1.9 (0-4.4) % Baso % (Auto) 0.2 (0.2-1.2) % Lymph # (Auto) 1.26 (0.9-3.2) K/mm3 Rock # (Auto) 0.8 H (0.1-0.6) K/mm3 Eos # (Auto) 0.2 (0-0.3) K/mm3 Baso # (Auto) 0.0 (0.0-0.1) K/mm3 Abs Immat Gran (auto) 0.02 (0.00-0.031) K/mm3 Absolute Neuts (auto) 5.8 (1.3-6.7) K/mm3 Absolute Nucleated RBC 0.000 (0.0-0.012) K/mm3 Nucleated RBC % 0.0 (0.0-0.2) % Sodium 134 L (137-145) mmol/L Potassium 4.3 (3.4-5.0) mmol/L Chloride 99 (98-107) mmol/L Carbon Dioxide 26 (22-30) mmol/L Anion Gap 9 (4-12) mmol/L BUN 27 H D (9-20) mg/dL Creatinine 1.00 (0.7-1.3) mg/dL Estim Creat Clear Calc 74 ml/min Estimated GFR > 60 (59 - ) Glucose 105 (65-110) mg/dL Calcium 9.1 (8.4-10.2) mg/dL Total Bilirubin 0.6 (0.2-1.3) mg/dL AST 24 (17-59) U/L ALT 18 (6-50) U/L Alkaline Phosphatase 98 (38-126) U/L Total Protein 8.0 (6.3-8.2) g/dL Albumin 4.1 (3.5-5.1) g/dL Lipase 87 (23-300) U/L Urine Color Yellow (Yellow) Urine Appearance Clear (Clear) Urine pH 5.5 (5.0-9.0) Ur Specific [place] 1.033 (1.001-1.035) Urine Protein Negative (Negative) mg/dL Urine Glucose (UA) Negative (Negative) mg/dL Urine Ketones Negative (Negative) mg/dL Ur Blood (Man) Negative (Negative) Urine Nitrate Negative (Negative) Urine Bilirubin Negative (Negative) Urine Urobilinogen 1.0 (<2.0) mg/dL Leukocyte Esterase Rfl Negative (Negative) ZURI/UL Discharge Plan Discharge Clinical Impression: Abdominal pain Patient Disposition: Home, Self-Care Condition: Stable Instructions: Antibiotic Form, Abdominal Pain (ED) Prescriptions: New prednisone 20 mg tablet 40 mg PO DAILY 5 Days Qty: 10 0RF pantoprazole [Protonix] 40 mg tablet,delayed release (DR/EC) 40 mg PO HS 28 Days Qty: 28 0RF No Action lisinopril 20 mg Tablet 20 mg PO DAILY hydroxyzine HCl 50 mg tablet 50 mg PO TID PRN (Reason: anxiety) Qty: 180 0RF Follow-up/Referrals: Constantino Rojo APRN [Primary Care Provider] - Time of Disposition: 05:28
[2023-12-29 04:57] LABS: Add Urine Microscopic? NO; Appearance Urine Clear (Clear); Bilirubin Urine Negative (Negative); Blood Urine Negative (Negative); Color Urine Yellow (Yellow); Glucose Urine UA Negative (Negative); Ketones Urine Negative (Negative); Leukocyte Esterase Ur Negative LEU/UL (Negative); Nitrate Urine Negative (Negative); Protein Urine Negative (Negative); Specific Grav Ur 1.033 (1.001-1.035); pH Urine 5.5 (5.0-9.0)
[2023-12-29] MEDS: PANTOPRAZOLE SODIUM IV 40 MG VIAL IV PUSH (05:09)
== END 2023-12-29 05:37 | disposition home or self-care (01) ==
PROVIDERS: Emergency Provider Emergency Medicine; PCP Nurse Practitioner Family
DX: R10.9 Unspecified abdominal pain (principal); I10 Essential (primary) hypertension; F17.290 Nicotine dependence, other tobacco product, uncomplicated
CPT/HCPCS: 36415; 74177; 80053; 81003; 83690; 85025; 96361; 96374; 96375; 99284; J2405; J2470; J7030; Q9967

== ENCOUNTER 2024-03-24 09:09 | Emergency (ER) | payer BC, SELFPAY ==
[2024-03-24] VITALS (8 sets, daily range): BP systolic 146–234; BP diastolic 93–139; PULSE 78–104; RESP 9–20; TEMP 36.5; O2SAT 98–100
--- NOTE | ~2024-03-24 | CT_ITS ---
EXAMINATION: CT abdomen pelvis w con DATE: 03/24/2024 10:43 INDICATION: Left lower quadrant abdominal pain TECHNIQUE: Computed tomography (CT) of the abdomen and pelvis was performed with 100 mL Omnipaque-350 intravenous contrast. Automated exposure control and iterative reconstruction technique were employe d. The dose-length product was 623.82 mGy-cm. COMPARISON: 12/29/2023 FINDINGS: Mild dependent atelectasis in the right lower lobe. Heart size is normal. Atherosclerotic coronary ar deepak calcific lesion. No pericardial or pleural effusion. Small sliding-type hiatal hernia. Unchanged peripheral geographic regions of decreased attenuation along the ligamentum teres, meg hepatis and caudal tip of the right hepatic lobe, with some overlying capsular retraction. Gallbladder, spleen, pancreas and bilateral adrenal glands are normal. There are bilateral renal cysts the largest on the left measuring 4.6 cm. Mild edematous wall thickening at the gastric pylorus and proximal duodenum wi th some stranding in the surrounding fat likely related to peptic ulcer disease with differential inc luding infectious or inflammatory gastritis/duodenitis. Remainder of the bowels are unremarkable incl uding a normal appendix. Bladder is normal. Prostatomegaly. Moderate-sized fat-containing left inguin al hernia. No free intraperitoneal gas or fluid. No pathologically enlarged abdominal or pelvic lymph adenopathy. IMPRESSION: 1. Mild wall thickening and some inflammatory stranding at the gastric pylorus and proximal duodenum likely related to peptic ulcer disease with differential including other infectious or inflammatory g astritis/duodenitis. 2. Fat-containing small umbilical and moderate-sized left inguinal hernias. 3. Focal geographic regions of decreased attenuation/enhancement with overlying capsular retraction i n the liver. Location to the regions be typical for focal hepatic steatosis along the capsular retrac tion and location at the caudal tip of the right hepatic lobe of the third lesion are atypical and th is could represent regions of focal scarring/fibrosis associated with prior insult such as trauma, in fection or infarction. 4. Prostatomegaly. Reviewed, dictated and finalized at location A. HER MACHINE IMPRESSION: 1. Mild wall thickening and some inflammatory stranding at the gastric pylorus and proximal duodenum likely related to peptic ulcer disease with differential including other infectious or inflammatory gastritis/duodenitis. 2. Fat-containing small umbilical and moderate-sized left inguinal hernias. 3. Focal geographic regions of decreased attenuation/enhancement with overlying capsular retraction in the liver. Location to the regions be typical for focal hepatic steatosis along the capsular retraction and location at the caudal tip of the right hepatic lobe of the third lesion are atypical and this could repr esent regions of focal scarring/fibrosis associated with prior insult such as t rauma, infection or infarction. 4. Prostatomegaly.
--- OUTSIDE RECORDS SUMMARY | 2024-03-24 09:46 | XMS_ITS | Referral Summary ---
Author Organization [facility] Address [address] [place] [address] Care Team Providers Care Retail Brand Ambassador Name Role Phone Unavailable Primary Care Provider Unavailabl e Source Comments [facility],non-owned Affiliates and Associated Physician Practices is amultiple site organization consisting of ambulatory clinics and hospital sitesin [place], [place], [place] and [place]. This disclosure is being madepursuant to the Care Everywhere program and may not contain all information available regarding this patient. Last updated 17.[facility] Social History Tobacco Use Types Packs/Day Years Used Date Smoking Tobacco: Never Assessed Sex and Gender Information Value Date Recorded Sex Assigned at Not on file Gender Identity Not on file Sexual Orientation Not on file Plan of Treatment Not on file
--- OUTSIDE RECORDS SUMMARY | 2024-03-24 09:46 | XMS_ITS | Clinical Summary ---
Author Organization [facility] Address [facility] [place] [address] Care Team Providers Care Press Machine Feeder Name Role Phone Non-Staff, Provider Primary Care Provider Unavai lable Allergies No known active allergies Medications ondansetron (ZOFRAN-ODT) 4 MG disintegrating tablet Take 1 tablet (4 mg total) by mouth every 8 (eight) hours as needed for Nausea. 20 tablet 2 Active lisinopril (PRINIVIL) 20 MG tablet Take 20 mg by mouth daily. Active ondansetron (ZOFRAN-ODT) 4 MG disintegrating tablet Take 2 tablets (8 mg total) by mouth every 8 (eight) hours as needed for Nausea. 20 tablet 2 Active Social History Tobacco Use Types Packs/Day Years Used Date Smoking Tobacco: Every Day Cigarettes Smokeless Tobacco: Never Alcohol Use Standard Drinks/Week Comments Never 0 (1 standard drink = 0.6 oz pur e alcohol) Sex and Gender Information Value Date Recorded Sex Assigned at Not on file Legal Sex Male 6:00 PM CDT Gender Identity Not on file Sexual Orientation Not on file Last Filed Vital Signs Vital Sign Reading Time Taken Comments Blood Pressure 164/106 05/18/2022 5:36 PM CDT Pulse 96 05/18/2022 5:36 PM CDT Temperature 36.7 C (98 F) 05/18/2022 5:36 PM CDT Respiratory Rate 20 05/18/2022 5:36 PM CDT Oxygen Saturation 99% 05/18/2022 5:36 PM CDT Inhaled Oxygen Concentration - - Weight 99.8 kg (220 lb) 05/18/2022 5:36 PM CDT Height 182.9 cm (6') 05/18/2022 5:36 PM CDT Body Mass Index 29.84 05/18/2022 5:36 PM CDT Plan of Treatment Health Maintenance Due Date Last Done Comments Colorectal Cancer Screening Colonoscopy (10 Years) 1961 Annual Physical 1964 Pneumococcal Vaccine: Pediat rics (0 to 5 Years) and At-Risk Patients (6 to 64 Years) (1 of 2 - PCV) 11/07/1967 Hepatitis C 11/07/1979 DTaP, Tdap and Td Vaccines ( 1 - Tdap) 1980 Zoster Vaccines (1 of 2) 11/07/2011 COVID-19 Vaccine (1 - 2023-2 5 season) 2023 Influenza Adult (#1) 2023 RSV Immunization or 60+ Years (1 - 1-dose 75+ series) 2036 Meningococcal B Vaccine Aged Out No l onger eligible based on patient's age to complete this topic Meningococcal Vaccine Aged Out No kimberly lilian eligible based on patient's age to complete this topic RSV Immunizations Under 20 Months Aged Out No longer eligible based on patient's age to complete this topic Insurance [facility] Care Teams Press Machine Feeder Relationship Specialty Start Date End Date Non-Staff, Provider PCP - General UNKNOWN PHYSICIAN SPECIALTY 05/18/22
--- OUTSIDE RECORDS SUMMARY | 2024-03-24 09:46 | XMS_ITS | Clinical Summary ---
Author Organization [facility] Address [address] [place] [address] Care Team Providers Care Ic Engineer Name Role Phone Unavailable Primary Care Provider Unavailabl e Source Comments [facility],non-owned Affiliates and Associated Physician Practices is amultiple site organization consisting of ambulatory clinics and hospital sitesin [place], [place], [place] and [place]. This disclosure is being madepursuant to the Care Everywhere program and may not contain all information available regarding this patient. Last updated 17.[facility] [employer] Social History Tobacco Use Types Packs/Day Years Used Date Smoking Tobacco: Never Assessed Sex and Gender Information Value Date Recorded Sex Assigned at Not on file Gender Identity Not on file Sexual Orientation Not on file Plan of Treatment Health Maintenance Due Date Last Done Comments COLOGUARD (AGES 45-75) - COL ON CA SCREENING 1961 COLON MONITORING 1961 COLONOSCOPY - COLON CA SCREENING 1961 CT COLONOGRAPHY - COLON CA SCREENING 1961 Colorectal Cancer Screening 1961 FIT - COLON CA SCREENING 1961 FLEX SIG - COLON CA SCREENING 1961 LIPID TESTING 1961 HIV SCREENING 1976 HEPATITIS C SCREENING 11/02/1979 DTAP/TDAP/TD VACCINES (1 - Tdap) 1980 PNEUMOCOCCAL VACCINE 50+ (1 of 1 - PCV) 11/07/2011 ZOSTER VACCINE (1 of 2) 11/07/2011 COVID-19 VACCINE ( - 2023-2 5 season) 2023 INFLUENZA VACCINE (#1) 2023 DEPRESSION SCREENING 02/11/2024 Respiratory Syncytial Virus (RSV) Vaccine Pt: or over 60 yrs (1 - 1-dose 75+ series) 2036 HEPATITIS B VACCINE Aged Out No longe r eligible based on patient's age to complete this topic HIB VACCINE Aged Out No longer eligi ble based on patient's age to complete this topic HPV VACCINE Aged Out No longer eligi ble based on patient's age to complete this topic MENINGOCOCCAL (Group B) VACCINE Aged Out No longer eligible based on patient's age to complete this topic MENINGOCOCCAL VACCINE Aged Out No kimberly lilian eligible based on patient's age to complete this topic PNEUMOCOCCAL VACCINE Aged Out No long er eligible based on patient's age to complete this topic
--- OUTSIDE RECORDS SUMMARY | 2024-03-24 09:46 | XMS_ITS | Patient Health Summary ---
Author Organization [facility] Address [address] [place] [address] Care Team Providers Care Carbon Paste Mixer Operator Name Role Phone Unavailable Primary Care Provider Unavailabl e Note from [facility],non-owned Affiliates and Associated Physician Practices is amultiple site organization consisting of ambulatory clinics and hospital sitesin [place], [place], [place] and [place]. This disclosure is being madepursuant to the Care Everywhere program and may not contain all information available regarding this patient. Last updated 17.[facility] Social History Tobacco Use Types Packs/Day Years Used Date Smoking Tobacco: Never Assessed Sex and Gender Information Value Date Recorded Sex Assigned at Not on file Gender Identity Not on file Sexual Orientation Not on file
[2024-03-24 10:07] LABS: Basophils Percent Auto 0.3 % (0.2-1.2); Eosinophils Absolute Auto 0.1 K/mm3 (0-0.3); Eosinophils Percent Auto 0.6 % (0-4.4); Hemoglobin 16.9 g/dL (14.0-18.0); Immature Granulocyte Absolute 0.03 K/mm3 (0.00-0.031); Immature Granulocyte Percent A 0.3 % (0-0.5); Lymphocytes Absolute Auto 1.63 K/mm3 (0.9-3.2); Lymphocytes Percent Auto 17.3 % (18.3-44.2); Mean Corpuscular HGB Conc 33.1 g/dl (32-36); Mean Corpuscular Volume 93.6 fl (80-100); Mean Platelet Volume 10.5 fl (7.4-10.4); Monocytes Absolute Auto 0.6 K/mm3 (0.1-0.6); Monocytes Percent Auto 5.8 % (2.6-8.5); Neutrophils Absolute Auto 7.1 K/mm3 (1.3-6.7); Neutrophils Percent Auto 75.7 % (45.5-73.1); Platelet Count Result 269 k/mm3 (150-375); Red Blood Count 5.45 M/mm3 (4.6-6.20); Red Cell Distribution Width 13.2 % (11.5-14.5); White Blood Count 9.4 K/mm3 (4.5-10.0)
--- NOTE | 2024-03-24 10:07 | ED_ITS ---
HPI - Abdominal Pain General Chief Complaint: Abdominal Pain Stated Complaint: abd pain x 2 days Time Seen by Provider: 03/24/24 10:03 History of Present Illness HPI narrative: Pt presents with abdominal pain since yesterday, generalized but worse in LLQ. Pt denies fever or urinary symptoms. Pt says moved bowels yesterday but was constipated. Pt never had pain like this before. Pt denies vomiting. Related Data Home Medications ?Medication ?Instructions ?Recorded ?Confirmed ?Last Taken ?Type lisinopril 20 mg tablet 20 mg PO DAILY 01/16/22 08/18/23 Unknown History Allergies Allergy/AdvReac Type Severity Reaction Status Date / Time No Known Allergies Allergy Verified 03/24/24 09:09 Review of Systems 2 Review of Systems: All systems reviewed & are unremarkable except as noted in HPI and below PMFSH Past Medical History Medical History Abnormal liver scan Hypertension Surgical History Surgical History H/O laminectomy L5-S1 Social History Social History Smoking status: Current every day smoker Tobacco type: cigarettes Additional smoking assessment comments: former smoker cigarettes currently vapes nicotine Alcohol intake: never Substance use: current Substance use type: amphetamines Last use: 08/16/23 Do You Feel Safe in your Home?: Yes Lack of Transportation: YES Lack of Food: Often True Current Housing: I Do Not Have Housing Concerned About Future Housing: YES Difficulty Paying Gas/Electric Bills: No Difficulty Paying for Meds: YES Currently Unemployed: YES Education: Associate Degree Difficulty w/ Childcare or Family Care: No Spiritual care concerns: No Exam 2 Const: General: healthy appearing and ill appearing (uncomfortable) N utritional Appearance: well nourished Orientation/consciousness: patient oriented x3 Limitations: no limitations HENMT: Mouth: Yes Normal oral and palatal mucosa present Resp: Effort & Inspection: normal respiratory effort Auscultation: clear to auscultation bilaterally Cardio: Rate: regular rate Rhythm: regular rhythm GI: GI Palp: Yes Soft to palpation and Yes Tenderness to palpation present (GI) (left side and llq but also more mild general tenderness) Auscultation: normal bowel sounds : General: Yes bladder normal to palpation and Yes no CVA tenderness Back/Spine/Pelvis: Back: no CVA tenderness Skin: General skin exam: normal color Rashes: no rashes Wounds: no wounds Neuro: General: patient oriented x3, moves all extremities and no focal motor deficits Speech: normal speech Extrem: General: normal to inspection and no clubbing, cyanosis or edema Psych: Mental Status: mental status grossly normal Affect: normal affect Attitude: cooperative Course Vital Signs Vital signs: Vital Signs Temperature 97.7 F 03/24/24 09:13 Pulse Rate 84 03/24/24 09:13 Respiratory Rate 20 03/24/24 09:13 Blood Pressure 234/139 H 03/24/24 09:13 Pulse Oximetry 99 03/24/24 09:13 Oxygen Delivery Room Air 03/24/24 09:13 Temperature 97.7 F 03/24/24 09:13 Pulse Rate 80 03/24/24 13:30 Respiratory Rate 16 03/24/24 13:30 Blood Pressure 195/124 H 03/24/24 13:30 Pulse Oximetry 98 03/24/24 13:30 Oxygen Delivery Room Air 03/24/24 09:13 MDM - Abdominal Pain Medical Records Medical records narrative: Pt presents with general abd pain worst in llq since yesterday. admits to hard stool. could be constipation but might be diverticulitis. will get labs and ct and treat pain. ct neg labs normal. pt better after meds. home on bentyl and mag citrate Lab Data 03/24/24 09:51 03/24/24 09:51 Labs: Lab Results 03/24/24 03/24/24 Range/Units 09:51 11:37 WBC 9.4 (4.5-10.0) K/mm3 RBC 5.45 (4.6-6.20) M/mm3 Hgb 16.9 D (14.0-18.0) g/dL Hct 51.0 (42.0-52.0) % MCV 93.6 (80-100) fl MCH 31.0 (26-34) pg MCHC 33.1 (32-36) g/dl RDW 13.2 (11.5-14.5) % Plt Count 269 (150-375) k/mm3 MPV 10.5 H (7.4-10.4) fl Immature Gran % (Auto) 0.3 (0-0.5) % Neut % (Auto) 75.7 H (45.5-73.1) % Lymph % (Auto) 17.3 L (18.3-44.2) % Saunders % (Auto) 5.8 (2.6-8.5) % Eos % (Auto) 0.6 (0-4.4) % Baso % (Auto) 0.3 (0.2-1.2) % Lymph # (Auto) 1.63 (0.9-3.2) K/mm3 Saunders # (Auto) 0.6 (0.1-0.6) K/mm3 Eos # (Auto) 0.1 (0-0.3) K/mm3 Baso # (Auto) 0.0 (0.0-0.1) K/mm3 Abs Immat Gran (auto) 0.03 (0.00-0.031) K/mm3 Absolute Neuts (auto) 7.1 H (1.3-6.7) K/mm3 Absolute Nucleated RBC 0.000 (0.0-0.012) K/mm3 Nucleated RBC % 0.0 (0.0-0.2) % Sodium 137 (137-145) mmol/L Potassium 4.1 (3.4-5.0) mmol/L Chloride 99 (98-107) mmol/L Carbon Dioxide 26 (22-30) mmol/L Anion Gap 12 (4-12) mmol/L BUN 16 D (9-20) mg/dL Creatinine 0.85 (0.7-1.3) mg/dL Estim Creat Clear Calc 86 ml/min Estimated GFR > 60 (59 - ) Glucose 97 (65-110) mg/dL Calcium 9.7 (8.4-10.2) mg/dL Total Bilirubin 1.1 (0.2-1.3) mg/dL AST 33 (17-59) U/L ALT 33 (6-50) U/L Alkaline Phosphatase 110 (38-126) U/L Total Protein 8.0 (6.3-8.2) g/dL Albumin 4.8 (3.5-5.1) g/dL Lipase 279 (23-300) U/L Urine Color Yellow (Yellow) Urine Appearance Clear (Clear) Urine pH 6.5 (5.0-9.0) Ur Specific [place] > 1.045 H (1.001-1.035) Urine Protein Trace (Negative) mg/dL Urine Glucose (UA) Negative (Negative) mg/dL Urine Ketones 2+ H (Negative) mg/dL Ur Blood (Man) Negative (Negative) Urine Nitrate Negative (Negative) Urine Bilirubin Negative (Negative) Urine Urobilinogen 0.2 (<2.0) mg/dL Leukocyte Esterase Rfl Negative (Negative) ZURI/UL Urine RBC 0-2 (0-2) /hpf Urine WBC 0-5 (0-3) /hpf Ur Squamous Epith Cells None seen (Few) /hpf Urine Bacteria None seen /hpf Urine Casts 0-2 Imaging Data Radiologist's impression: ITS Impressions Abdomen/Pelvis CT 03/24/24 10:43 IMPRESSION: 1. Mild wall thickening and some inflammatory stranding at the gastric pylorus and proximal duodenum likely related to peptic ulcer disease with differential including other infectious or inflammatory gastritis/duodenitis. 2. Fat-containing small umbilical and moderate-sized left inguinal hernias. 3. Focal geographic regions of decreased attenuation/enhancement with overlying capsular retraction in the liver. Location to the regions be typical for focal hepatic steatosis along the capsular retraction and location at the caudal tip of the right hepatic lobe of the third lesion are atypical and this could represent regions of focal scarring/fibrosis associated with prior insult such as trauma, infection or infarction. 4. Prostatomegaly. Discharge Plan Discharge Clinical Impression: Abdominal pain Patient Disposition: Home, Self-Care Condition: Improved Instructions: Antibiotic Form, Abdominal Pain (ED) Patient Language: Japanese Prescriptions: New magnesium citrate Solution 300 ml PO ONCE Qty: 296 0RF Rx Instructions: as a single dose dicyclomine 20 mg tablet 20 mg PO QID Qty: 14 0RF No Action lisinopril 20 mg Tablet 20 mg PO DAILY hydroxyzine HCl 50 mg tablet 50 mg PO TID PRN (Reason: anxiety) Qty: 180 0RF prednisone 20 mg tablet 40 mg PO DAILY 5 Days Qty: 10 0RF pantoprazole [Protonix] 40 mg tablet,delayed release (DR/EC) 40 mg PO HS 28 Days Qty: 28 0RF Follow-up/Referrals: PHYSICIAN NOT ON STAFF,NONSTAFF [Non-Staff] -
[2024-03-24 10:21] LABS: Alanine Aminotransferase 33 U/L (6-50); Albumin Level 4.8 g/dL (3.5-5.1); Alkaline Phosphatase 110 U/L (38-126); Anion Gap 12 mmol/L (4-12); Aspartate Amino Transferase 33 U/L (17-59); Bilirubin,Total 1.1 mg/dL (0.2-1.3); Blood Urea Nitrogen 16 mg/dL (9-20); Calcium 9.7 mg/dL (8.4-10.2); Carbon Dioxide 26 mmol/L (22-30); Chloride 99 mmol/L (98-107); Estimated CRCL calculation 86 ml/min; Estimated Glomerular Filt Rate > 60; Glucose 97 mg/dL (65-110); Lipase 279 U/L (23-300); Potassium 4.1 mmol/L (3.4-5.0); Sodium 137 mmol/L (137-145)
[2024-03-24] MEDS: ONDANSETRON INJ 4 MG/2 ML VIAL IV PUSH (10:22)
[2024-03-24] MEDS: MORPHINE SULFATE (*CRX) 4 MG/ML INJ IV PUSH (10:24)
[2024-03-24] MEDS: DICYCLOMINE HCL INJ 20 MG/2 ML VIAL IM (10:25)
--- OUTSIDE RECORDS SUMMARY | 2024-03-24 11:08 | XMS_ITS | Clinical Summary ---
Author Organization [facility] Address [facility] [address] [place] [address] Care Team Providers Care Heavy Duty Mechanic Name Role Phone Non-Staff, Provider Primary Care [...] patient's age to complete this topic Insurance [facility] Care Teams Heavy Duty Mechanic Relationship Specialty Start Date End Date Non-Staff, Provider PCP - General UNKNOWN PHYSICIAN SPECIALTY 05/18/22
--- OUTSIDE RECORDS SUMMARY | 2024-03-24 11:08 | XMS_ITS | Patient Health Summary ---
Author Organization [facility] Address [address] [place] [address] Care Team Providers Care Corking Machine Operator Name Role Phone Unavailable Primary Care Provider Unavailabl e Note from [facility],non-owned Affiliates and Associated Physician Practices is amultiple site organization consisting of ambulatory clinics and hospital sitesin [place], [place], [place] and [place]. This disclosure is being madepursuant to the Care Everywhere program and may not contain all information available regarding this patient. Last updated 17.[facility] Social History Tobacco Use Types Packs/Day Years Used Date Smoking Tobacco: Never Assessed Sex and Gender Information Value Date Recorded Sex Assigned at Not on file Gender Identity Not on file Sexual Orientation Not on file
--- OUTSIDE RECORDS SUMMARY | 2024-03-24 11:08 | XMS_ITS | Referral Summary ---
Author Organization [facility] Address [address] [place] [address] Care Team Providers Care Forestry Aide Name Role Phone Unavailable Primary Care Provider Unavailabl e Source Comments [facility],non-owned Affiliates and Associated Physician Practices is amultiple site organization consisting of ambulatory clinics and hospital sitesin [place], [place], [place] and [place]. This disclosure is being madepursuant to the Care Everywhere program and may not contain all information available regarding this patient. Last updated 17.[facility] Social History Tobacco Use Types Packs/Day Years Used Date Smoking Tobacco: Never Assessed Sex and Gender Information Value Date Recorded Sex Assigned at Not on file Gender Identity Not on file Sexual Orientation Not on file Plan of Treatment Not on file
--- OUTSIDE RECORDS SUMMARY | 2024-03-24 11:08 | XMS_ITS | Clinical Summary ---
Author Organization [facility] Address [address] [place] [address] Care Team Providers Care Restaurant Line Cook Name Role Phone Unavailable Primary Care Provider Unavailabl e Source Comments [facility],non-owned Affiliates and Associated Physician Practices is amultiple site organization consisting of ambulatory clinics and hospital sitesin [place], [place], [place] and [place]. This disclosure is being madepursuant to the Care Everywhere program and may not contain all information available regarding this patient. Last updated 17.[facility] [employer] Social History Tobacco Use Types Packs/Day Years [...]
[2024-03-24 11:49] LABS: Add Urine Microscopic? YES; Appearance Urine Clear (Clear); Bacteria Urine None Seen /hpf; Bilirubin Urine Negative (Negative); Blood Urine Negative (Negative); Color Urine Yellow (Yellow); Glucose Urine UA Negative (Negative); Ketones Urine 2+ mg/dL (Negative); Leukocyte Esterase Ur Negative LEU/UL (Negative); Nitrate Urine Negative (Negative); Non Pathogenic Casts 0-2; Protein Urine Trace mg/dL (Negative); RBC Urine 0-2 /hpf (0-2); Specific Grav Ur > 1.045 (1.001-1.035); Squamous Epithelial Cell Urine None Seen /hpf (Few); Urobilinogen Urine 0.2 mg/dL (<2.0); WBC Urine 0-5 /hpf (0-3); pH Urine 6.5 (5.0-9.0)
== END 2024-03-24 13:30 | disposition home or self-care (01) ==
PROVIDERS: Emergency Provider Emergency Medicine
DX: R10.84 Generalized abdominal pain (principal); F17.210 Nicotine dependence, cigarettes, uncomplicated; I10 Essential (primary) hypertension
CPT/HCPCS: 36415; 74177; 80053; 81001; 83690; 85025; 96372; 96374; 96375; 99284; J0500; J2270; J2405; Q9967